=== PATIENT | male | born 1990 | race Caucasian/White ===

== ENCOUNTER 2023-11-11 14:40 | Emergency (ER) | payer OTHER ==
[~2023-11-11] VITALS: Ht 165.1 cm; Wt 59.2 kg
[2023-11-11 15:21] LABS: HEMOGLOBIN 15.6 g/dl (13.5-17.5); MEAN CORPUSCULAR HEMOGLOBIN 30.4 pg (27.0-33.0); MEAN CORPUSCULAR HGB CONC 34.7 g/dl (32.0-36.5); MEAN CORPUSCULAR VOLUME 87.7 fl (80.0-96.0); PLATELET COUNT, AUTOMATED 205 10^3/uL (150-450); RED BLOOD COUNT 5.13 10^6/uL (4.30-6.10); WHITE BLOOD COUNT 8.9 10^3/uL (4.0-10.0)
[2023-11-11 15:39] LABS: AMPHETAMINES LEVEL URINE NEGATIVE (NEGATIVE)
[2023-11-11 15:40] LABS: BARBITURATES URINE NEGATIVE (NEGATIVE); BENZODIAZEPINES URINE NEGATIVE (NEGATIVE); COCAINE METABOLITE URINE NEGATIVE (NEGATIVE); METHADONE URINE NEGATIVE (NEGATIVE); OPIATES URINE NEGATIVE (NEGATIVE); PHENCYCLIDINE URINE NEGATIVE (NEGATIVE)
[2023-11-11 15:42] LABS: ETHYL ALCOHOL (ETHANOL) 0.004 % (0.000-0.010)
[2023-11-11 15:44] LABS: ALBUMIN 3.9 G/DL (3.2-5.2); ALKALINE PHOSPHATASE 79 U/L (46-116); ALT/SGPT 83 U/L (7.0-40); AST/SGOT 48 U/L (<34); BILIRUBIN,DIRECT 0.2 MG/DL (<0.4); BILIRUBIN,TOTAL 0.6 MG/DL (0.3-1.2); BLOOD UREA NITROGEN 5 MG/DL (9-23); CALCIUM LEVEL 9.4 MG/DL (8.5-10.1); CARBON DIOXIDE LEVEL 24 MMOL/L (20-31); CHLORIDE LEVEL 110 MMOL/L (98-107); CREATININE FOR GFR 0.68 MG/DL (0.70-1.30); GLOMERULAR FILTRATION RATE > 60.0 (>60); GLUCOSE, FASTING 115 MG/DL (60-100); POTASSIUM SERUM 4.5 MMOL/L (3.5-5.1); SALICYLATE LEVEL < 3.0 MG/DL (<30); SODIUM LEVEL 139 MMOL/L (136-145); TOTAL PROTEIN 7.1 G/DL (5.7-8.2)
[2023-11-11 15:46] LABS: CANNABINOIDS URINE POSITIVE (NEGATIVE); THYROID STIMULATING HORMONE 0.946 uIU/ML (0.55-4.78)
[2023-11-11] MEDS ORDERED: FLUO20CA22 PO (16:10)
[2023-11-11] MEDS ORDERED: HOME MED LIST COMPLETE! XX SCH (17:05)
[2023-11-11 17:39] VITALS: BP 141/68; TEMP 97.3; O2SAT 96
== END 2023-11-11 17:55 | disposition home or self-care (01) ==
LOC: M ED 14:40
DX: F43.0 Acute stress reaction (principal); F43.10 Post-traumatic stress disorder, unspecified; F17.200 Nicotine dependence, unspecified, uncomplicated; F12.10 Cannabis abuse, uncomplicated; Z79.899 Other long term (current) drug therapy

== ENCOUNTER 2024-07-18 01:40 | Inpatient (IN) | payer MEDICAID, OTHER ==
[~2024-07-18] VITALS: Ht 167.6 cm; Wt 57.5 kg
[~2024-07-18 01:40] MED LIST: FLUO-365 PO
[2024-07-18 02:16] LABS: HEMATOCRIT 40.9 % (42.0-52.0); HEMOGLOBIN 14.2 g/dl (13.5-17.5); MEAN CORPUSCULAR HEMOGLOBIN 30.5 pg (27.0-33.0); MEAN CORPUSCULAR HGB CONC 34.7 g/dl (32.0-36.5); MEAN CORPUSCULAR VOLUME 87.8 fl (80.0-96.0); PLATELET COUNT, AUTOMATED 198 10^3/uL (150-450); RED BLOOD COUNT 4.66 10^6/uL (4.30-6.10)
[2024-07-18 02:38] LABS: ETHYL ALCOHOL (ETHANOL) < 0.003 % (0.000-0.010)
[2024-07-18 02:40] LABS: ALKALINE PHOSPHATASE 55 U/L (40-129); ALT/SGPT 64 U/L (7.0-40); AST/SGOT 58 U/L (<34); BILIRUBIN,DIRECT 0.2 MG/DL (<0.4); BILIRUBIN,TOTAL 0.6 MG/DL (0.3-1.2); BLOOD UREA NITROGEN 9 MG/DL (9-23); CARBON DIOXIDE LEVEL 26 MMOL/L (20-31); CHLORIDE LEVEL 101 MMOL/L (98-107); CREATININE FOR GFR 0.78 MG/DL (0.70-1.30); GLOMERULAR FILTRATION RATE > 60.0 (>60); GLUCOSE, FASTING 75 MG/DL (60-100); POTASSIUM SERUM 4.1 MMOL/L (3.5-5.1); SALICYLATE LEVEL < 3.0 MG/DL (<30); SODIUM LEVEL 136 MMOL/L (136-145); TOTAL PROTEIN 7.1 G/DL (5.7-8.2)
[2024-07-18 02:48] LABS: THYROID STIMULATING HORMONE 1.694 uIU/ML (0.55-4.78)
[2024-07-18 02:49] LABS: AMPHETAMINES LEVEL URINE NEGATIVE (NEGATIVE); BARBITURATES URINE NEGATIVE (NEGATIVE); COCAINE METABOLITE URINE NEGATIVE (NEGATIVE); METHADONE URINE NEGATIVE (NEGATIVE); OPIATES URINE NEGATIVE (NEGATIVE); PHENCYCLIDINE URINE NEGATIVE (NEGATIVE)
[2024-07-18 02:50] LABS: BENZODIAZEPINES URINE NEGATIVE (NEGATIVE)
[2024-07-18 02:51] LABS: CANNABINOIDS URINE POSITIVE (NEGATIVE)
[2024-07-18] MEDS ORDERED: HOME MED LIST COMPLETE! XX SCH (08:35)
[2024-07-18] MEDS: FLUoxetine 20MG CAP PO SCH (09:01)
[2024-07-18 10:17] VITALS: BP 95/55; TEMP 98.2; O2SAT 100
[2024-07-18 16:10] VITALS: BP 143/73; TEMP 98; O2SAT 97
[2024-07-19] MEDS ORDERED: MAALOX 30 ML SUSP *UDC PO PRN (00:55)
[2024-07-19] MEDS ORDERED: traZODone 50 MG TAB PO PRN (00:55)
[2024-07-19] MEDS ORDERED: MOM 30ML SUSPENSION UDC PO PRN (00:55)
[2024-07-19] MEDS: NICOTINE 21MG/24HR 1 EA TRANSDERMAL TD SCH (02:08)
[2024-07-19 06:38] VITALS: BP 123/77; TEMP 99; O2SAT 98
[2024-07-19] MEDS: FLUZONE VACCINE TRIVALENT PF(2024-25) 0.5ML SYRINGE IM.IMMUN ONE (08:29)
[2024-07-19 15:49] VITALS: BP 135/72; TEMP 98.6; O2SAT 100
[2024-07-19] MEDS: IBUPROFEN 400MG TAB PO PRN (16:55)
[2024-07-19] MEDS: diphenhydrAMINE 25MG CAP PO PRN (20:29)
[2024-07-19] MEDS: OLANZapine 5 MG TAB PO PRN (20:29)
[2024-07-19] MEDS: MIRTAZAPINE 7.5MG PER 1/2 TABLET PO SCH (20:29)
[2024-07-20 06:25] VITALS: BP 120/70; TEMP 97.2; O2SAT 98
[2024-07-20 15:10] VITALS: BP 123/72; TEMP 97.3; O2SAT 99
[2024-07-21 06:30] VITALS: BP 110/67; TEMP 97.8; O2SAT 100
[2024-07-21 15:40] VITALS: BP 143/70; TEMP 98.6; O2SAT 98
[2024-07-22 06:32] VITALS: BP 131/81; TEMP 96.9; O2SAT 100
[2024-07-22] MEDS: FLUoxetine 10 MG CAP PO SCH (08:05)
[2024-07-22 09:57] VITALS: BP 131/81; TEMP 96.9; O2SAT 100
[2024-07-22 16:55] VITALS: BP 126/57; TEMP 97.9; O2SAT 100
[2024-07-23 06:37] VITALS: BP 129/98; TEMP 97; O2SAT 100
[2024-07-23 13:14] VITALS: BP 129/98; TEMP 97; O2SAT 100
[2024-07-23 15:57] VITALS: BP 132/77; TEMP 98.3; O2SAT 99
[2024-07-23] MEDS: ACETAMINOPHEN 325 MG TAB PO PRN (16:33)
[2024-07-24 06:18] VITALS: BP 117/65; TEMP 98; O2SAT 100
[2024-07-24 15:21] VITALS: BP 129/73; TEMP 98.4; O2SAT 98
[2024-07-25 10:11] VITALS: BP 132/84; TEMP 98.4; O2SAT 100
[2024-07-25 15:20] VITALS: BP 131/63; TEMP 98.7; O2SAT 100
[2024-07-26 06:40] VITALS: BP 125/74; TEMP 98.8; O2SAT 100
[2024-07-26] MEDS ORDERED: FLUO-290 PO (12:23)
[2024-07-26] MEDS ORDERED: HYDR-3363 PO (12:23)
[2024-07-26] MEDS ORDERED: MIRT-10 PO (12:23)
== END 2024-07-26 15:53 | disposition home or self-care (01) | DRG 754 ==
LOC: M ED 01:40 → M ED INP 09:38 → M PSY 10:14
PROVIDERS: ADMIT Psychiatry & Neurology Psychiatry; ATTEND Psychiatry & Neurology Psychiatry
DX: F32.A Depression, unspecified (principal); F41.9 Anxiety disorder, unspecified; F43.10 Post-traumatic stress disorder, unspecified; F79 Unspecified intellectual disabilities; F17.210 Nicotine dependence, cigarettes, uncomplicated; F12.90 Cannabis use, unspecified, uncomplicated; J45.909 Unspecified asthma, uncomplicated; Z56.0 Unemployment, unspecified; Z59.00 Homelessness unspecified; R45.851 Suicidal ideations; G47.00 Insomnia, unspecified; Z81.8 Family history of other mental and behavioral disorders; Z63.8 Other specified problems related to primary support group; Z79.899 Other long term (current) drug therapy

== ENCOUNTER 2025-01-02 19:44 | Inpatient (IN) | payer MEDICAID, OTHER ==
[~2025-01-02] VITALS: Ht 162.6 cm; Wt 59.4 kg
[~2025-01-02 19:44] MED LIST changes: +FLUO-290 PO; +HYDR-3363 PO; +MIRT-10 PO
[2025-01-02 20:32] LABS: PLATELET COUNT, AUTOMATED 170 10^3/uL (150-450)
[2025-01-02 20:50] LABS: AMPHETAMINES LEVEL URINE NEGATIVE (NEGATIVE); BARBITURATES URINE NEGATIVE (NEGATIVE); BENZODIAZEPINES URINE NEGATIVE (NEGATIVE); COCAINE METABOLITE URINE NEGATIVE (NEGATIVE); METHADONE URINE NEGATIVE (NEGATIVE); OPIATES URINE NEGATIVE (NEGATIVE); PHENCYCLIDINE URINE NEGATIVE (NEGATIVE)
[2025-01-02 20:53] LABS: ETHYL ALCOHOL (ETHANOL) < 0.003 % (0.000-0.010)
[2025-01-02 20:54] LABS: ALT/SGPT 54 U/L (7.0-40); AST/SGOT 30 U/L (<34); CALCIUM LEVEL 9.7 MG/DL (8.5-10.1); CARBON DIOXIDE LEVEL 26 MMOL/L (20-31); CHLORIDE LEVEL 106 MMOL/L (98-107); CREATININE FOR GFR 0.82 MG/DL (0.70-1.30); GLOMERULAR FILTRATION RATE > 90.0 (>60); POTASSIUM SERUM 4.8 MMOL/L (3.5-5.1); SALICYLATE LEVEL < 3.0 MG/DL (<30); SODIUM LEVEL 142 MMOL/L (136-145)
[2025-01-02 21:04] LABS: CANNABINOIDS URINE POSITIVE (NEGATIVE)
[2025-01-03] MEDS ORDERED: MIRT1TAB PO (08:48)
[2025-01-03] MEDS ORDERED: HYDR-3363 PO (08:48)
[2025-01-03] MEDS ORDERED: HOME MED LIST COMPLETE! XX SCH (08:50)
[2025-01-03] MEDS ORDERED: MOM 30 ML SUSPENSION UDC PO PRN (17:40)
[2025-01-03] MEDS ORDERED: ACETAMINOPHEN 325 MG TAB PO PRN (17:40)
[2025-01-03] MEDS ORDERED: MAALOX 30 ML SUSP *UDC PO PRN (17:40)
[2025-01-03] MEDS ORDERED: IBUPROFEN 400 MG TAB PO PRN (17:40)
[2025-01-03] MEDS ORDERED: traZODone 50 MG TAB PO PRN (17:40)
[2025-01-03] MEDS ORDERED: MIRTAZAPINE 7.5 MG PER 1/2 TABLET PO SCH (21:00)
[2025-01-03 21:44] VITALS: BP 129/82; TEMP 98.2; O2SAT 95
[2025-01-03] MEDS: MIRTAZAPINE 7.5 MG PER 1/2 TABLET PO SCH (22:26)
[2025-01-04 06:30] VITALS: BP 105/51; TEMP 98.2; O2SAT 95
[2025-01-04] MEDS: FLUoxetine 20 MG CAP PO SCH (08:06)
[2025-01-04] MEDS ORDERED: FLUoxetine 20 MG CAP PO SCH (09:00)
[2025-01-04] MEDS ORDERED: HYDR-3363 PO (11:41)
[2025-01-04] MEDS ORDERED: MIRT1TAB PO (11:41)
[2025-01-04] MEDS ORDERED: FLUO-365 PO (11:41)
== END 2025-01-04 13:04 | disposition home or self-care (01) | DRG 754 ==
LOC: M ED 19:44 → M ED INP 01-03 17:40 → M PSY 01-03 21:16
PROVIDERS: ADMIT Psychiatry & Neurology Neurology; ATTEND Psychiatry & Neurology Neurology
DX: F32.A Depression, unspecified (principal); F79 Unspecified intellectual disabilities; R45.851 Suicidal ideations; F41.9 Anxiety disorder, unspecified; F17.200 Nicotine dependence, unspecified, uncomplicated; F15.90 Other stimulant use, unspecified, uncomplicated; F12.90 Cannabis use, unspecified, uncomplicated